=== PATIENT | female | born 1990 | race Caucasian/White ===

== ENCOUNTER 2022-03-12 12:26 | Inpatient (IN) | payer MEDICARE, MEDICAID ==
[~2022-03-12] VITALS: Ht 154.9 cm; Wt 83.9 kg
[~2022-03-12 12:26] MED LIST: LITH600C5 PO; LURA80TA2 PO; QUET25TA PO; RISP1TAB48 PO; RISP2TAB76 PO; SERT-158 PO; TRAZ-257 PO
[2022-03-12] MEDS ORDERED: RISP1TAB89 PO (12:43)
[2022-03-12] MEDS ORDERED: HYDR10SY9 PO (12:45)
[2022-03-12] MEDS ORDERED: SERT-158 PO (12:45)
[2022-03-12 13:15] LABS: BASOPHILS % (AUTO) 0.7 % (0.0-2.0); EOSINOPHILS % (AUTO) 0 % (1.0-6.0); HEMATOCRIT 38.6 % (36-46); HEMOGLOBIN 13.2 g/dL (12.0-16.0); LYMPHOCYTES # (AUTO) 2.2 K/uL (1.0-4.8); LYMPHOCYTES % (AUTO) 13.8 % (22.0-44.0); MEAN CORPUSCULAR HEMOGLOBIN 28.6 pg (26.0-34.0); MEAN CORPUSCULAR HGB CONC 34.2 G/dL (31.0-37.0); MEAN CORPUSCULAR VOLUME 84 fL (80-100); MONOCYTES # (AUTO) 1.3 K/uL (0.1-1.0); MONOCYTES % (AUTO) 8.3 % (2.0-9.0); NEUTROPHILS # (AUTO) 12.2 K/uL (1.8-7.7); NEUTROPHILS % (AUTO) 77.2 % (40.0-70.0); PLATELET COUNT (AUTO) 252 K/uL (150-450); RED BLOOD CELL COUNT(AUTO) 4.61 MIL/uL (4.00-5.20); RED CELL DISTRIBUTION WIDTH 13.1 % (11.5-14.5)
[2022-03-12 13:30] LABS: AMPHET/METH SCREEN,URINE POSITIVE (NEGATIVE); BARBITURATE SCREEN, URINE NEGATIVE (NEGATIVE); BENZODIAZEPINES SCREEN,URINE NEGATIVE (NEGATIVE); CANNABINOID SCREEN,URINE NEGATIVE (NEGATIVE); COCAINE SCREEN,URINE NEGATIVE (NEGATIVE); METHADONE SCREEN, URINE NEGATIVE (NEGATIVE); OPIATE SCREEN,URINE NEGATIVE (NEGATIVE)
[2022-03-12 13:31] LABS: PHENCYCLIDINE SCREEN,URINE NEGATIVE (NEGATIVE)
[2022-03-12 13:34] LABS: ALANINE AMINOTRANSFERASE 25 U/L (12-78); ALBUMIN 4.3 g/dL (3.4-5.0); ALKALINE PHOSPHATASE 69 U/L (46-116); ANION GAP 14 mmol/L (8-16); ASPARTATE AMINOTRANSFERASE 25 U/L (15-37); BILIRUBIN,TOTAL 0.8 mg/dL (0.1-1.0); CALCIUM, TOTAL 8.7 mg/dL (8.8-10.5); CARBON DIOXIDE 21 mmol/L (22-29); CHLORIDE 102 mmol/L (98-107); GLUCOSE,RANDOM 114 mg/dL (70-110); SODIUM SERUM 137 mmol/L (136-145); TOTAL PROTEIN, SERUM 7.7 g/dL (6.4-8.2); UREA NITROGEN, BLOOD 12 mg/dL (7-18)
[2022-03-12 13:36] LABS: GLOMERULAR FILTR. RATE CALC > 60 mL/min (>60); POTASSIUM 2.8 mmol/L (3.5-5.1)
[2022-03-12] MEDS ORDERED: HYDR-4808 PO (13:39)
[2022-03-12] MEDS ORDERED: DIVALPROEX SODIUM 500 MG ER TABLET PO ONE (13:45)
[2022-03-12] MEDS ORDERED: POTASSIUM CHLORIDE 10% 40 MEQ/30 ML LIQUID UDCUP PO ONE ×2 (13:45→14:30)
[2022-03-12] MEDS ORDERED: HydrOXYzine PAMOATE 25 MG CAPSULE PO ONE ×2 (17:00)
[2022-03-12] MEDS ORDERED: ZOLPIDEM TARTRATE 10 MG TABLET PO PRN (17:30)
[2022-03-12] MEDS ORDERED: HALOPERIDOL 5 MG TABLET PO PRN (17:30)
[2022-03-12] MEDS: LORazepam 2 MG TABLET PO PRN (20:06)
[2022-03-12 23:43] LABS: COVID AG,FIA SOURCE NASAL SWAB
[2022-03-13 02:49] VITALS: BP 117/88
[2022-03-13 08:34] VITALS: BP 100/66
[2022-03-13 16:11] VITALS: BP 99/68
[2022-03-13] MEDS: DIVALPROEX SODIUM 500 MG DR TABLET PO SCH (16:33)
[2022-03-13] MEDS: RisperiDONE 1 MG TABLET PO SCH (16:33)
[2022-03-13] MEDS ORDERED: PETROLATUM,WHITE 28 GM JELLY TP PRN (22:45)
[2022-03-13] MEDS ORDERED: IBUPROFEN 600 MG TABLET PO PRN (22:45)
[2022-03-13] MEDS ORDERED: MAGNESIUM HYDROXIDE SUSPENSION 30 ML UDCUP PO PRN (22:45)
[2022-03-13] MEDS ORDERED: MAG HYDROX/AL HYDROX/SIMETH ES 30 ML SUSPENSION UDCUP PO PRN (22:45)
[2022-03-13] MEDS ORDERED: ONDANSETRON HCL 4 MG TABLET PO PRN (22:45)
[2022-03-13] MEDS ORDERED: LOPERAMIDE HCL 2 MG CAPSULE PO PRN (22:45)
[2022-03-13] MEDS ORDERED: BACITRACIN 28 GM OINTMENT TP PRN (22:45)
[2022-03-13] MEDS ORDERED: DOCUSATE SODIUM 100 MG CAPSULE PO PRN (22:45)
[2022-03-13] MEDS ORDERED: OMEPRAZOLE 20 MG CAPSULE PO PRN (22:45)
[2022-03-13] MEDS ORDERED: ACETAMINOPHEN 325 MG TABLET PO PRN (22:45)
[2022-03-13] MEDS ORDERED: BENZOCAINE/MENTHOL LOZENGE PO PRN (22:45)
[2022-03-13] MEDS ORDERED: CloNIDine HCL 0.1 MG TABLET PO PRN (22:45)
[2022-03-13] MEDS ORDERED: ALBUTEROL SULFATE HFA 90 MCG/PUFF 8 GM INHALER IH PRN (22:45)
[2022-03-14 04:24] VITALS: BP 108/55
[2022-03-14 08:27] LABS: HEMOGLOBIN A1C 4.5 % (3.8-5.6)
[2022-03-14 08:38] VITALS: BP 115/58
[2022-03-14 08:42] LABS: CHOL/HDL RATIO 2.4 (3.9-5.7); FREE T4 (FREE THYROXINE) 1.21 ng/dL (0.76-1.46); THYROID STIMULATING HORMONE 0.97 uIU/mL (0.36-3.74)
[2022-03-14] MEDS: RisperiDONE 1 MG TABLET PO SCH ×2 (09:16→17:58)
[2022-03-14] MEDS: LORazepam 2 MG TABLET PO PRN (09:17)
[2022-03-14] MEDS: DIVALPROEX SODIUM 500 MG DR TABLET PO SCH ×2 (09:17→17:58)
[2022-03-14 16:27] VITALS: BP 99/58
[2022-03-14 17:58] VITALS: BP 100/63
[2022-03-15 01:35] VITALS: BP 102/62
[2022-03-15 08:15] VITALS: BP 111/69
[2022-03-15] MEDS: RisperiDONE 1 MG TABLET PO SCH ×2 (08:59→17:00)
[2022-03-15] MEDS: DIVALPROEX SODIUM 500 MG DR TABLET PO SCH ×2 (08:59→17:00)
[2022-03-15 16:48] VITALS: BP 102/66
[2022-03-16 00:52] VITALS: BP 102/63
[2022-03-16 08:25] VITALS: BP 108/65
[2022-03-16] MEDS: RisperiDONE 1 MG TABLET PO SCH ×2 (09:10→16:07)
[2022-03-16] MEDS: DIVALPROEX SODIUM 500 MG DR TABLET PO SCH ×2 (09:10→16:07)
[2022-03-16 16:48] VITALS: BP 123/62
[2022-03-17 06:28] VITALS: BP 110/66
[2022-03-17 08:46] VITALS: BP 108/67
[2022-03-17] MEDS: RisperiDONE 1 MG TABLET PO SCH ×2 (08:49→18:03)
[2022-03-17] MEDS: DIVALPROEX SODIUM 500 MG DR TABLET PO SCH ×2 (08:49→18:03)
[2022-03-17 17:36] LABS: GLUCOMETER DEV NAME(LOC) POC.BV
[2022-03-17 17:47] VITALS: BP 111/62
[2022-03-18 06:32] VITALS: BP 107/67
[2022-03-18] MEDS: RisperiDONE 1 MG TABLET PO SCH ×2 (08:18→16:41)
[2022-03-18] MEDS: DIVALPROEX SODIUM 500 MG DR TABLET PO SCH ×2 (08:18→16:41)
[2022-03-18 09:02] VITALS: BP 146/62
[2022-03-18 17:31] VITALS: BP 102/60
[2022-03-19 04:10] VITALS: BP 118/69
[2022-03-19] MEDS: DIVALPROEX SODIUM 500 MG DR TABLET PO SCH ×2 (08:21→16:19)
[2022-03-19] MEDS: RisperiDONE 1 MG TABLET PO SCH ×2 (08:21→16:19)
[2022-03-19 08:50] VITALS: BP 97/60
[2022-03-19 16:22] VITALS: BP 116/62
[2022-03-20 00:50] VITALS: BP 109/62
[2022-03-20 08:27] VITALS: BP 99/62
[2022-03-20] MEDS: DIVALPROEX SODIUM 500 MG DR TABLET PO SCH ×2 (08:32→16:47)
[2022-03-20] MEDS: RisperiDONE 1 MG TABLET PO SCH ×2 (08:32→16:47)
[2022-03-20 16:11] VITALS: BP 113/62
[2022-03-21 00:56] VITALS: BP 101/65
[2022-03-21 08:10] VITALS: BP 110/69
[2022-03-21] MEDS: DIVALPROEX SODIUM 500 MG DR TABLET PO SCH ×2 (10:04→16:04)
[2022-03-21] MEDS: RisperiDONE 1 MG TABLET PO SCH ×2 (10:04→16:04)
[2022-03-21 16:11] VITALS: BP 124/61
[2022-03-22 00:35] VITALS: BP 118/62
[2022-03-22 08:26] VITALS: BP 100/61
[2022-03-22] MEDS: DIVALPROEX SODIUM 500 MG DR TABLET PO SCH ×2 (09:28→16:12)
[2022-03-22] MEDS: RisperiDONE 1 MG TABLET PO SCH ×2 (09:28→16:12)
[2022-03-22 16:08] VITALS: BP 120/65
[2022-03-23 06:05] VITALS: BP 114/67
[2022-03-23 07:14] LABS: EOSINOPHILS % (AUTO) 7.3 % (1.0-6.0); HEMATOCRIT 38.7 % (36-46); HEMOGLOBIN 13.2 g/dL (12.0-16.0); LYMPHOCYTES # (AUTO) 1.7 K/uL (1.0-4.8); LYMPHOCYTES % (AUTO) 25.5 % (22.0-44.0); MEAN CORPUSCULAR HEMOGLOBIN 28.9 pg (26.0-34.0); MEAN CORPUSCULAR HGB CONC 34.1 G/dL (31.0-37.0); MEAN CORPUSCULAR VOLUME 85 fL (80-100); MONOCYTES # (AUTO) 0.5 K/uL (0.1-1.0); MONOCYTES % (AUTO) 7.2 % (2.0-9.0); PLATELET COUNT (AUTO) 156 K/uL (150-450); RED BLOOD CELL COUNT(AUTO) 4.56 MIL/uL (4.00-5.20); RED CELL DISTRIBUTION WIDTH 13.3 % (11.5-14.5)
[2022-03-23 07:23] LABS: HEMOGLOBIN A1C 4.6 % (3.8-5.6)
[2022-03-23 08:05] VITALS: BP 109/68
[2022-03-23 08:17] LABS: ALANINE AMINOTRANSFERASE 16 U/L (12-78); ALBUMIN 3.3 g/dL (3.4-5.0); ALKALINE PHOSPHATASE 60 U/L (46-116); ANION GAP 8 mmol/L (8-16); ASPARTATE AMINOTRANSFERASE 12 U/L (15-37); BILIRUBIN,TOTAL 0.3 mg/dL (0.1-1.0); CALCIUM, TOTAL 8.4 mg/dL (8.8-10.5); CARBON DIOXIDE 23 mmol/L (22-29); CHLORIDE 105 mmol/L (98-107); CHOL/HDL RATIO 2.6 (3.9-5.7); CHOLESTEROL 140 mg/dL (131-200); CREATININE 0.61 mg/dL (0.60-1.30); GLUCOSE,RANDOM 79 mg/dL (70-110); HDL CHOLESTEROL 54 mg/dL (40-60); LDL CHOL (CALC.) 76 mg/dL (0-130); PHOSPHORUS 3.4 mg/dL (2.5-4.9); POTASSIUM 4.3 mmol/L (3.5-5.1); SODIUM SERUM 136 mmol/L (136-145); THYROID STIMULATING HORMONE 1.01 uIU/mL (0.36-3.74); TOTAL PROTEIN, SERUM 6.1 g/dL (6.4-8.2); TRIGLYCERIDES 51 mg/dL (15-150); UREA NITROGEN, BLOOD 10 mg/dL (7-18)
[2022-03-23 08:18] LABS: GLOMERULAR FILTR. RATE CALC > 60 mL/min (>60)
[2022-03-23] MEDS: RisperiDONE 1 MG TABLET PO SCH ×2 (08:24→16:21)
[2022-03-23] MEDS: DIVALPROEX SODIUM 500 MG DR TABLET PO SCH ×2 (08:24→16:22)
[2022-03-23] MEDS ORDERED: RISP1TAB48 PO (09:30)
[2022-03-23] MEDS ORDERED: DIVA-112 PO (09:31)
[2022-03-23 10:56] LABS: GLUCOMETER DEV NAME(LOC) POC.BV
[2022-03-23 16:06] VITALS: BP 104/60
[2022-03-24 00:10] VITALS: BP 103/62
[2022-03-24 08:07] VITALS: BP 109/67
[2022-03-24] MEDS: DIVALPROEX SODIUM 500 MG DR TABLET PO SCH ×2 (08:48→16:36)
[2022-03-24] MEDS: RisperiDONE 1 MG TABLET PO SCH ×2 (08:48→16:36)
[2022-03-24 16:14] VITALS: BP 108/73
[2022-03-25] MEDS: RisperiDONE 1 MG TABLET PO SCH ×2 (08:14→16:45)
[2022-03-25] MEDS: DIVALPROEX SODIUM 500 MG DR TABLET PO SCH ×2 (08:14→16:45)
[2022-03-25 08:34] VITALS: BP 98/58
[2022-03-25 20:19] VITALS: BP 108/69
[2022-03-26 08:12] VITALS: BP 108/63
[2022-03-26] MEDS: RisperiDONE 1 MG TABLET PO SCH ×2 (08:23→16:11)
[2022-03-26] MEDS: DIVALPROEX SODIUM 500 MG DR TABLET PO SCH ×2 (08:23→16:12)
[2022-03-26 20:17] VITALS: BP 104/64
[2022-03-27 04:59] VITALS: BP 112/68
[2022-03-27 08:06] VITALS: BP 119/79
[2022-03-27] MEDS: RisperiDONE 1 MG TABLET PO SCH ×2 (08:25→16:08)
[2022-03-27] MEDS: DIVALPROEX SODIUM 500 MG DR TABLET PO SCH ×2 (08:25→16:08)
[2022-03-27 20:23] VITALS: BP 136/67
[2022-03-28] MEDS: RisperiDONE 1 MG TABLET PO SCH ×2 (08:50→16:11)
[2022-03-28] MEDS: DIVALPROEX SODIUM 500 MG DR TABLET PO SCH ×2 (08:50→16:11)
[2022-03-28 09:11] VITALS: BP 122/59
[2022-03-28 20:40] VITALS: BP 100/64
[2022-03-28] MEDS ORDERED: DIVA-112 PO (21:57)
[2022-03-28] MEDS ORDERED: RISP1TAB98 PO (21:57)
[2022-03-29] MEDS ORDERED: DIVA125C PO ×2 (00:51→00:52)
== END 2022-03-29 08:53 | disposition home or self-care (01) | DRG 885 ==
LOC: EMS 12:28 → B2S 03-13 00:40
PROVIDERS: ADMIT Psychiatry & Neurology Psychiatry; ATTEND Psychiatry & Neurology Psychiatry
DX: F25.9 Schizoaffective disorder, unspecified (principal); R45.851 Suicidal ideations; E66.9 Obesity, unspecified; E87.6 Hypokalemia; F15.10 Other stimulant abuse, uncomplicated; F41.9 Anxiety disorder, unspecified; G47.00 Insomnia, unspecified; Z20.822 Contact with and (suspected) exposure to COVID-19; I10 Essential (primary) hypertension; J45.909 Unspecified asthma, uncomplicated; K21.9 Gastro-esophageal reflux disease without esophagitis; Z88.5 Allergy status to narcotic agent; Z68.35 Body mass index [BMI] 35.0-35.9, adult; Z59.00 Homelessness unspecified; Z87.59 Personal history of other complications of pregnancy, childbirth and the puerperium; Z91.19 Patient's noncompliance with other medical treatment and regimen; Z72.0 Tobacco use
CPT/HCPCS: 80053; 80061; 80164; 83036; 83735; 84100; 84132; 84439; 84443; 84703; 85025; 87081; 99285; G0480

== ENCOUNTER 2023-06-21 15:02 | Emergency (ER) | payer MEDICAID, MEDICARE ==
[~2023-06-21 15:02] MED LIST changes: +DIVA-112 PO; -LITH600C5 PO; -LURA80TA2 PO; -QUET25TA PO; +RISP1TAB98 PO; -RISP2TAB76 PO; -SERT-158 PO; -TRAZ-257 PO
== END 2023-06-21 15:16 | disposition left against medical advice (07) ==
LOC: EMS 15:03
DX: M25.561 Pain in right knee (principal); Z53.21 Procedure and treatment not carried out due to patient leaving prior to being seen by health care provider
CPT/HCPCS: 99281; Z7502

== ENCOUNTER 2023-08-10 21:53 | Emergency (ER) | payer OTHER ==
[~2023-08-10] VITALS: Ht 154.9 cm; Wt 81.8 kg
[2023-08-10 22:07] VITALS: TEMP 99.5
[2023-08-10 22:23] LABS: COVID AG,FIA SOURCE NASAL SWAB
[2023-08-10 22:29] LABS: SARS-COV2 (COVID) ANTIGEN,FIA Negative (Negative)
[2023-08-10 22:30] LABS: INFLUENZA TYPE A NEGATIVE FOR TYPE A (NEGATIVE); INFLUENZA TYPE B NEGATIVE FOR TYPE B (NEGATIVE)
[2023-08-11 00:30] VITALS: BP 114/85
[2023-08-11] MEDS ORDERED: ALBUTEROL SULFATE 2.5 MG/0.5 ML NEB SOLUTION NEB ONE (01:00)
[2023-08-11] MEDS ORDERED: IPRATROPIUM BROMIDE 0.5 MG/2.5 ML NEB SOLUTION NEB ONE (01:00)
[2023-08-11 01:11] VITALS: PULSE 100; RESP 23; O2SAT 97
[2023-08-11 01:12] VITALS: PULSE 100; RESP 23; O2SAT 97
[2023-08-11] MEDS ORDERED: AZIT250T9 PO (02:29)
[2023-08-11] MEDS ORDERED: PRED-554 PO (02:29)
[2023-08-11] MEDS ORDERED: PredniSONE 20 MG TABLET PO ONE (02:30)
== END 2023-08-11 02:48 | disposition home or self-care (01) ==
LOC: EMS 21:54
DX: J40 Bronchitis, not specified as acute or chronic (principal); F31.9 Bipolar disorder, unspecified; F20.9 Schizophrenia, unspecified; F12.90 Cannabis use, unspecified, uncomplicated; F15.90 Other stimulant use, unspecified, uncomplicated; Z98.890 Other specified postprocedural states; Z88.5 Allergy status to narcotic agent
CPT/HCPCS: 99284; 87426; 87804; 94060; 71045; 94640; J7512; J7613

== ENCOUNTER 2024-05-24 01:18 | Emergency (ER) | payer MEDICARE, MEDICAID ==
[~2024-05-24 01:18] MED LIST changes: -DIVA-112 PO; +RISP-31 PO; -RISP1TAB48 PO; -RISP1TAB98 PO
== END 2024-05-24 02:31 ==
LOC: EMS 01:18
DX: R45.1 Restlessness and agitation (principal); Z88.5 Allergy status to narcotic agent
CPT/HCPCS: 99283; Z7502